=== PATIENT | female | born 1950 | race Caucasian/White ===

== ENCOUNTER 2016-11-14 12:51 | Emergency (ER) | payer OTHER ==
[~2016-11-14] VITALS: Ht 162.6 cm; Wt 57.5 kg
[~2016-11-14 12:51] MED LIST: ADVAIR 100/501 DISK IH; ADVAIR 500-501 EACH IH; AGGRENOX1 CAPSULE PO; ATROVENT 0.06%15 ML NS; Ativan PO; BIOTIN 5000MCG PO; BIOTIN1 MG PO; CELEXA40 MG PO; COMPAZINE10 MG PO; COMPAZINE25 M1 PR; CYMBALTA30 MG PO; DESYREL100 MG PO; DIAZEPAM10 MG PO; EPIPEN ADU0.3 MG/0.3 IM; FISH OIL 1,2001 EAC4 PO; FLONASE16 G1 BOTH NARES; FLONASE16 GM NS; FLUDROCORTISON0.1 M1 PO; Flonase BOTH NARES; GRALISE300 MG PO; HYDROXYZINE HCL10 MG PO; INDOCIN25 MG PO; INDOCIN50 M1 PR; IPRATROPIUM BRO15 ML BOTH NARES; LEVOTHYROXINE75 MCG PO; LIDODERM 5% P1 PATCH TD; LORAZEPAM1 MG PO; LUNESTA1 MG PO; MELATIN3 MG PO; MIRALAX17 GM PO; NATURAL LUTEIN20 MG PO; NORTRIPTYLINE H25 MG PO; Non-Formulary PR; PHENADOZ25 MG PR; PRAVACHOL80 MG PO; PRAVASTATIN SOD80 MG PO; PRILOSEC OTC20 MG PO; PROAIR HFA8.5 GM IH; PROVIGIL200 MG PO; ROBAXIN750 MG PO; SINGULAIR10 MG PO; SKELAXIN400 M1 PO; SYNTHROID75 MCG PO; VITAMIN D-32000 UNI2 PO; WELLBUTRIN XL150 MG PO
[2016-11-14 13:48] LABS: HEMATOCRIT 38.9 % (36.0-46.0); MCH 32.9 PG (29.0-34.0); MCHC 32.6 G/DL (30.0-36.0); MCV 100.8 FL (83-99); MEAN PLAT.VOLUME 8.3 uM^3 (9.5-12.4); PLATELET COUNT 289 K/uL (156-360); RBC DIS.WIDTH-CV 12.1 % (11.8-14.6); RBC DIS.WIDTH-SD 44.9 % (39-53); RED BLOOD COUNT 3.86 M/uL (3.80-5.20); WHITE BLOOD COUNT 5.3 K/uL (4.1-10.2)
[2016-11-14 14:00] LABS: CHLORIDE 106 mEq/L (99-109); POTASSIUM 4.4 mEq/L (3.7-5.4); SODIUM 139 mEq/L (136-147)
[2016-11-14 14:01] LABS: GLUCOSE 95 mg/dL (70-99)
[2016-11-14 14:03] LABS: ANION GAP 8 MEQ/L (2-14)
[2016-11-14 14:05] LABS: GFR ESTIMATE (CALCULATED) > 59 mL/min/
[2016-11-14 14:06] LABS: UREA NITROGEN (BUN) 6 mg/dL (9-23)
[2016-11-14 14:11] LABS: TROP-I INTERPRETATION NEGATIVE; TROPONIN-I < 0.01 ng/mL (0.0-0.30)
[2016-11-14 17:26] VITALS: BP 104/84
== END 2016-11-14 17:28 | disposition home or self-care (01) ==
LOC: EME 12:51
PROVIDERS: Emergency Medicine
DX: T54.91XA Toxic effect of unspecified corrosive substance, accidental (unintentional), initial encounter (principal); J68.0 Bronchitis and pneumonitis due to chemicals, gases, fumes and vapors; J45.909 Unspecified asthma, uncomplicated; G43.909 Migraine, unspecified, not intractable, without status migrainosus; Y92.002 Bathroom of unspecified non-institutional (private) residence as the place of occurrence of the external cause; E78.5 Hyperlipidemia, unspecified; E03.9 Hypothyroidism, unspecified; Z86.73 Personal history of transient ischemic attack (TIA), and cerebral infarction without residual deficits; Z88.6 Allergy status to analgesic agent; Z88.2 Allergy status to sulfonamides; Z91.041 Radiographic dye allergy status
CPT/HCPCS: 70450; 71020; 80048; 84484; 85027; 93005; 99281; 99285; J3010

== ENCOUNTER 2016-12-14 12:46 | Emergency (ER) | payer OTHER ==
[2016-12-14 13:08] LABS: BASOPHIL COUNT 0.1 K/uL (0-0.1); EOSINOPHIL (%) 1.6 % (0-5); EOSINOPHIL COUNT 0.1 K/uL (0-0.3); HEMATOCRIT 36.2 % (36.0-46.0); IMMATURE GRANULOCYTE (%) 0.2 % (0.0-0.7); INSTRUMENT ABS NEUTROPHIL CT 3.9 K/uL; LYMPHOCYTE COUNT 1.3 K/uL (1.0-2.8); MCH 32.5 PG (29.0-34.0); MCHC 33.4 G/DL (30.0-36.0); MCV 97.3 FL (83-99); MEAN PLAT.VOLUME 8.2 uM^3 (9.5-12.4); MONOCYTE (%) 7.8 % (3-12); MONOCYTE COUNT 0.5 K/uL (0-0.8); NEUTROPHIL (%) 67.4 % (45-76); NEUTROPHIL COUNT 3.9 K/uL (1.8-6.4); PLATELET COUNT 286 K/uL (156-360); RBC DIS.WIDTH-CV 12.1 % (11.8-14.6); RBC DIS.WIDTH-SD 43.3 % (39-53); RED BLOOD COUNT 3.72 M/uL (3.80-5.20); WHITE BLOOD COUNT 5.8 K/uL (4.1-10.2)
[2016-12-14 13:18] LABS: AMYLASE 57 IU/L (1-118); CHLORIDE 102 mEq/L (99-109); POTASSIUM 3.7 mEq/L (3.7-5.4); SODIUM 134 mEq/L (136-147)
[2016-12-14 13:20] LABS: GLUCOSE 85 mg/dL (70-99)
[2016-12-14 13:21] LABS: ANION GAP 7 MEQ/L (2-14)
[2016-12-14 13:23] LABS: SERUM ETHYL ALCOHOL < 10 mg/dL
[2016-12-14 13:24] LABS: GFR ESTIMATE (CALCULATED) > 59 mL/min/; UREA NITROGEN (BUN) 6 mg/dL (9-23)
[2016-12-14 13:27] LABS: LIPASE 22 U/L (1.0-51.0)
[2016-12-14] MEDS ORDERED: DILAUDID2 MG PO (14:04)
[2016-12-14] MEDS ORDERED: VALIUM2 MG PO (14:04)
== END 2016-12-14 15:49 | disposition home or self-care (01) ==
LOC: TRA 12:46
PROVIDERS: Emergency Medicine
DX: T14.8 Other injury of unspecified body region (principal); M25.552 Pain in left hip; M54.9 Dorsalgia, unspecified; M54.2 Cervicalgia; V49.40XA Driver injured in collision with unspecified motor vehicles in traffic accident, initial encounter; Y92.488 Other paved roadways as the place of occurrence of the external cause
CPT/HCPCS: 70450; 71250; 72125; 74176; 80048; 81003; 82150; 83690; 85025; 86900; 86901; 99281; 99285; G0480; J1170; J2060; J2405; J3010; J7050

== ENCOUNTER 2016-12-16 13:45 | Emergency (ER) | payer OTHER ==
[~2016-12-16] VITALS: Ht 162.6 cm; Wt 60.3 kg
[~2016-12-16 13:45] MED LIST changes: +DILAUDID2 MG PO; +VALIUM2 MG PO
[2016-12-16] MEDS ORDERED: [UNRECOGNIZED DRUG - OTHER] IM (16:32)
[2016-12-16 17:24] VITALS: BP 141/76
== END 2016-12-16 17:29 | disposition home or self-care (01) ==
LOC: EME 13:45
DX: T63.441A Toxic effect of venom of bees, accidental (unintentional), initial encounter (principal); T78.2XXA Anaphylactic shock, unspecified, initial encounter; R06.02 Shortness of breath; M79.601 Pain in right arm; J44.9 Chronic obstructive pulmonary disease, unspecified; J45.909 Unspecified asthma, uncomplicated; E78.5 Hyperlipidemia, unspecified; E03.9 Hypothyroidism, unspecified
CPT/HCPCS: 99281; 99284; J1200; J2930; S0028

== ENCOUNTER 2017-12-01 13:27 | Inpatient (IN) | payer OTHER ==
[~2017-12-01] VITALS: Ht 162.6 cm; Wt 48.1 kg
[~2017-12-01 13:27] MED LIST changes: +ADVAIR 500/501 DISK IH; +ATORVASTATIN CA40 MG PO; +CLONAZEPAM0.5 MG PO; +FIORICET 50-301 EAC1 PO; +FLEXERIL10 MG PO; +FLORINEF ACETA0.1 MG PO; +GABAPENTIN600 MG PO; +NEURONTIN300 MG PO; +OCUVITE LUTEIN1 EAC2 PO; +PRAMIPEXOLE D0.25 MG PO; +SOOLANTRA30 GM TP; +SPIRIVA RESPIMAT4 GM IH; +VITAMIN D35000 UNIT PO; +[UNRECOGNIZED DRUG - OTHER] IM
[2017-12-01 17:44] LABS: BASOPHIL (%) 0.8 % (0-1); BASOPHIL COUNT 0.1 K/uL (0-0.1); EOSINOPHIL COUNT 0.2 K/uL (0-0.3); HEMATOCRIT 37.5 % (36.0-46.0); HEMOGLOBIN 12.5 G/DL (11.9-15.5); IMMATURE GRANULOCYTE (%) 0.3 % (0.0-0.7); LYMPHOCYTE (%) 18.4 % (15-42); LYMPHOCYTE COUNT 1.6 K/uL (1.0-2.8); MCH 33.5 PG (29.0-34.0); MCHC 33.3 G/DL (30.0-36.0); MCV 100.5 FL (83-99); MONOCYTE (%) 6.3 % (3-12); MONOCYTE COUNT 0.6 K/uL (0-0.8); NEUTROPHIL (%) 72.2 % (45-76); NEUTROPHIL COUNT 6.3 K/uL (1.8-6.4); PLATELET COUNT 275 K/uL (156-360); RBC DIS.WIDTH-CV 13.3 % (11.8-14.6); RBC DIS.WIDTH-SD 49.5 % (39-53); RED BLOOD COUNT 3.73 M/uL (3.80-5.20); WHITE BLOOD COUNT 8.7 K/uL (4.1-10.2)
[2017-12-01 17:53] LABS: ALBUMIN 3.8 g/dL (3.2-4.8); CHLORIDE 109 mEq/L (99-109); POTASSIUM 3.5 mEq/L (3.7-5.4); PTT 31.3 SEC (25-37); SODIUM 144 mEq/L (136-147)
[2017-12-01 17:56] LABS: GLUCOSE 89 mg/dL (70-99); TOTAL PROTEIN 5.9 g/dL (6.4-8.3)
[2017-12-01 17:57] LABS: TOTAL BILIRUBIN 0.4 mg/dL (0.0-1.0)
[2017-12-01 17:59] LABS: ALKALINE PHOSPHATASE 74 IU/L (3-129); CREATININE 0.7 mg/dL (0.6-1.3); GFR ESTIMATE (CALCULATED) > 59 mL/min/
[2017-12-01 18:00] LABS: UREA NITROGEN (BUN) 10 mg/dL (9-23)
[2017-12-01 18:01] LABS: AST (GOT) 35 IU/L (2-34)
[2017-12-01 18:02] LABS: ALT (GPT) 35 IU/L (3-49)
[2017-12-01] MEDS ORDERED: MIRAPEX0.25 MG PO ×2 (18:58)
[2017-12-01] MEDS ORDERED: COMPAZINE25 M1 PR (19:00)
[2017-12-01 21:23] LABS: HEMATOCRIT 33.8 % (36.0-46.0); HEMOGLOBIN 11.4 G/DL (11.9-15.5); MCH 33.9 PG (29.0-34.0); MCHC 33.7 G/DL (30.0-36.0); MCV 100.6 FL (83-99); PLATELET COUNT 248 K/uL (156-360); RBC DIS.WIDTH-CV 13.4 % (11.8-14.6); RBC DIS.WIDTH-SD 49.9 % (39-53); RED BLOOD COUNT 3.36 M/uL (3.80-5.20); WHITE BLOOD COUNT 7.6 K/uL (4.1-10.2)
[2017-12-01 22:00] VITALS: BP 132/60
[2017-12-01 22:26] LABS: APPEARANCE CLEAR ((CLEAR)); BILIRUBIN NEGATIVE; BLOOD NEGATIVE; COLOR YELLOW ((YELLOW)); GLUCOSE (STRIP) NEGATIVE; KETONES NEGATIVE; LEUKOCYTES NEGATIVE; NITRITE NEGATIVE; PROTEIN (STRIP) NEGATIVE; SPECIFIC GRAVITY 1.013 (1.000-1.030); UCUL ADDED? NO; UROBILINOGEN 0.2 MG/DL (0.2-1.0)
[2017-12-02 04:46] VITALS: BP 117/58
[2017-12-02 08:25] VITALS: BP 112/57
[2017-12-02 08:28] LABS: CHLORIDE 107 MEQ/L (99-109); CREATININE 0.7 MG/DL (0.6-1.3); GFR ESTIMATE (CALCULATED) > 59 mL/min/; GLUCOSE 97 mg/dL (70-99); SODIUM 141 MEQ/L (136-147); UREA NITROGEN (BUN) 10 mg/dL (9-23)
[2017-12-02 08:33] LABS: POTASSIUM 4.3 MEQ/L (3.7-5.4)
[2017-12-02 12:19] VITALS: BP 132/70
[2017-12-02 19:47] VITALS: BP 118/56
[2017-12-02 23:21] VITALS: BP 134/73
[2017-12-03] VITALS (7 sets, daily range): BP systolic 90–157; BP diastolic 55–65
[2017-12-03 06:57] LABS: BASOPHIL (%) 0.4 % (0-1); EOSINOPHIL COUNT 0.2 K/uL (0-0.3); HEMATOCRIT 30.1 % (36.0-46.0); HEMOGLOBIN 9.9 G/DL (11.9-15.5); IMMATURE GRANULOCYTE (%) 0.4 % (0.0-0.7); LYMPHOCYTE (%) 14.4 % (15-42); LYMPHOCYTE COUNT 1.1 K/uL (1.0-2.8); MCHC 32.9 G/DL (30.0-36.0); MCV 100.3 FL (83-99); MONOCYTE (%) 9.9 % (3-12); MONOCYTE COUNT 0.8 K/uL (0-0.8); NEUTROPHIL (%) 72.9 % (45-76); NEUTROPHIL COUNT 5.5 K/uL (1.8-6.4); PLATELET COUNT 215 K/uL (156-360); RBC DIS.WIDTH-CV 13.5 % (11.8-14.6); WHITE BLOOD COUNT 7.6 K/uL (4.1-10.2)
[2017-12-03 07:22] LABS: CHLORIDE 105 MEQ/L (99-109); CREATININE 0.6 MG/DL (0.6-1.3); GFR ESTIMATE (CALCULATED) > 59 mL/min/; GLUCOSE 117 mg/dL (70-99); POTASSIUM 4.3 MEQ/L (3.7-5.4); SODIUM 140 MEQ/L (136-147); UREA NITROGEN (BUN) 10 mg/dL (9-23)
[2017-12-04 04:49] VITALS: BP 130/59
[2017-12-04 07:31] LABS: HEMATOCRIT 29.5 % (36.0-46.0); HEMOGLOBIN 9.4 G/DL (11.9-15.5); MCH 32.4 PG (29.0-34.0); MCHC 31.9 G/DL (30.0-36.0); MCV 101.7 FL (83-99); PLATELET COUNT 195 K/uL (156-360); RBC DIS.WIDTH-CV 13.5 % (11.8-14.6); RBC DIS.WIDTH-SD 50.4 % (39-53); WHITE BLOOD COUNT 6.6 K/uL (4.1-10.2)
[2017-12-04 07:54] VITALS: BP 133/64
[2017-12-04 08:01] LABS: ALKALINE PHOSPHATASE 50 IU/L (3-129); ALT (GPT) 15 IU/L (3-49); AST (GOT) 21 IU/L (2-34); CHLORIDE 107 MEQ/L (99-109); CREATININE 0.6 MG/DL (0.6-1.3); GFR ESTIMATE (CALCULATED) > 59 mL/min/; GLUCOSE 116 mg/dL (70-99); POTASSIUM 4.6 MEQ/L (3.7-5.4); SODIUM 142 MEQ/L (136-147); TOTAL BILIRUBIN 0.2 MG/DL (0.0-1.0); UREA NITROGEN (BUN) 12 mg/dL (9-23)
[2017-12-04 11:56] VITALS: BP 138/66
[2017-12-04 17:33] VITALS: BP 140/67
[2017-12-04 19:25] VITALS: BP 112/59
[2017-12-05 00:14] VITALS: BP 120/65
[2017-12-05 07:53] VITALS: BP 130/64
[2017-12-05 15:50] VITALS: BP 130/73
[2017-12-05 23:33] VITALS: BP 117/60
[2017-12-06 06:42] LABS: HEMATOCRIT 30.9 % (36.0-46.0); HEMOGLOBIN 9.8 G/DL (11.9-15.5); MCH 32.3 PG (29.0-34.0); MCHC 31.7 G/DL (30.0-36.0); RBC DIS.WIDTH-CV 13.5 % (11.8-14.6); RBC DIS.WIDTH-SD 50.4 % (39-53); RED BLOOD COUNT 3.03 M/uL (3.80-5.20); WHITE BLOOD COUNT 6.3 K/uL (4.1-10.2)
[2017-12-06 06:47] LABS: PLATELET COUNT 281 K/uL (156-360)
[2017-12-06 07:04] LABS: ALKALINE PHOSPHATASE 62 IU/L (3-129); ALT (GPT) 11 IU/L (3-49); AST (GOT) 15 IU/L (2-34); CHLORIDE 103 MEQ/L (99-109); CREATININE 0.7 MG/DL (0.6-1.3); GFR ESTIMATE (CALCULATED) > 59 mL/min/; GLUCOSE 104 mg/dL (70-99); POTASSIUM 4.5 MEQ/L (3.7-5.4); SODIUM 143 MEQ/L (136-147); TOTAL BILIRUBIN 0.2 MG/DL (0.0-1.0); UREA NITROGEN (BUN) 14 mg/dL (9-23)
[2017-12-06 07:50] VITALS: BP 135/74
== END 2017-12-06 15:13 | DRG 481 ==
LOC: EME 13:27 → EDOF 20:00 → 3EAST 20:00 → ENRESERV 20:01 → 3EAST 22:04
PROVIDERS: Emergency Medicine; Hospitalist; Internal Medicine
PROC: 0QH704Z Insertion of Internal Fixation Device into Left Upper Femur, Open Approach (ICD-10-PCS; principal; 2017-12-02)
PROC: 0Y980ZZ Drainage of Left Femoral Region, Open Approach (ICD-10-PCS; 2017-12-03)
DX: S72.092A Other fracture of head and neck of left femur, initial encounter for closed fracture (principal); L76.32 Postprocedural hematoma of skin and subcutaneous tissue following other procedure; Y83.8 Other surgical procedures as the cause of abnormal reaction of the patient, or of later complication, without mention of misadventure at the time of the procedure; S50.02XA Contusion of left elbow, initial encounter; W01.0XXA Fall on same level from slipping, tripping and stumbling without subsequent striking against object, initial encounter; Y92.009 Unspecified place in unspecified non-institutional (private) residence as the place of occurrence of the external cause; J44.9 Chronic obstructive pulmonary disease, unspecified; E87.6 Hypokalemia; I10 Essential (primary) hypertension; E78.00 Pure hypercholesterolemia, unspecified; I69.351 Hemiplegia and hemiparesis following cerebral infarction affecting right dominant side; E03.9 Hypothyroidism, unspecified; E78.5 Hyperlipidemia, unspecified; G47.419 Narcolepsy without cataplexy; G25.81 Restless legs syndrome; H35.30 Unspecified macular degeneration; J38.01 Paralysis of vocal cords and larynx, unilateral; M26.623 Arthralgia of bilateral temporomandibular joint; R26.89 Other abnormalities of gait and mobility; F41.9 Anxiety disorder, unspecified; Z88.5 Allergy status to narcotic agent; Z88.2 Allergy status to sulfonamides; Z91.041 Radiographic dye allergy status
CPT/HCPCS: 70450; 71045; 72125; 73080; 73200; 73502; 76000; 78582; 80048; 80053; 81003; 82306; 85025; 85027; 85379; 85610; 85730; 93005; 94640; 94799; 97530 GO; 97530 GP; 99281; 99285; A9540; A9567; C1713; J0131; J0690; J1100; J1170; J1200; J1650; J2405; J3010; J7030